=== PATIENT | male | born 1975 | race American Indian/Alaskan Native ===

== ENCOUNTER → 2023-07-13 09:09 | Outpatient (CLI) | payer OTHER, MEDICAID, SELFPAY ==
--- NOTE | 2023-07-13 09:30 | DI.MRI.S_ITS ---
PROCEDURE: MR PELIS WO/W CON INDICATIONS: Evaluate perineal lesion question fistula TECHNIQUE: Three plane MR imaging of the low pelvis before and after gadolinium based contrast. COMPARISON: None. FINDINGS: Image quality: Excellent. Soft tissues: In the subdermal tissues of the perineal body, there is an area of skin thickening which extends from the scrotum dorsally for a length of roughly 8.9 cm. Subdermal ovoid mass measures roughly 4.0 x 2.1 cm. Within this subdermal mass, there is a tubular T2 mildly hyperintense structure measuring 6.7 x 0.5 x 0.8 cm. There is no connection to the anal canal which is at least 5 cm away. There is no stranding or abnormality in the underlying subcutaneous fat. There is moderate enhancement confined to the thickened skin of this area which better defines the hypoenhancing tract. No significant inflammation in the subcutaneous fat. Intrapelvic soft tissues are within normal limits. No evidence of hernia or adenopathy. Bones: The visualized bone marrow demonstrates normal signal on all sequences. The overlying cortex appears intact. No abnormal intraosseous enhancement. IMPRESSION: There is a tubular perineal body mass with surrounding dermal inflammation in the area of palpable abnormality with a differential diagnosis of superficial thrombophlebitis, subdermal inclusion cyst or inflammatory sinus. Dictated by: Lynn Dietrich M.D. on 07/13/2023 at 14:33 Approved by: Lynn Dietrich M.D. on 07/13/2023 at 14:49
== END ==
PROVIDERS: Referring Provider Urology; Visit Provider Urology
DX: L98.9 Disorder of the skin and subcutaneous tissue, unspecified (principal); Z86.19 Personal history of other infectious and parasitic diseases
CPT/HCPCS: 72197; A9579